=== PATIENT | female | born 1985 | race Caucasian/White ===

== ENCOUNTER 2018-03-11 07:14 | Emergency (ER) | payer OTHER ==
[~2018-03-11] VITALS: Ht 154.9 cm; Wt 55.8 kg
[~2018-03-11 07:14] MED LIST: COL100 PO; IBUPROFEN400 MG PO; LORTAB 5/3251 TAB PO
[2018-03-11 07:32] VITALS: BP 112/693; Ht 154.9 cm; Wt 55.8 kg
== END 2018-03-11 08:40 | disposition home or self-care (01) ==
LOC: ED 07:14
DX: S92.352A Displaced fracture of fifth metatarsal bone, left foot, initial encounter for closed fracture (principal); W10.9XXA Fall (on) (from) unspecified stairs and steps, initial encounter; Y93.89 Activity, other specified; Y92.89 Other specified places as the place of occurrence of the external cause; Y99.8 Other external cause status
CPT/HCPCS: Q0092